=== PATIENT | male | born 1955 | race Caucasian/White ===

== ENCOUNTER 2017-01-05 19:07 | Emergency (ER) | payer MEDICARE, BC ==
--- NOTE | ~2017-01-05 | CR243 ---
[facility]. [facility] A Service of [facility] & [facility] RADIOLOGY TEXT RESULTS PATIENT: LYNNE SEPULVEDA LOCATION: SED : 53 UNIT #: [id number] AGE: [address]: Jocelin Peguero MD SEX: M ORDER DR: [id number] [place] [id number] E MR#: [id number] Acc #: [id number] NAME: LYNNE SEPULVEDA : 1955 SEX: M STUDY DATE/TIME: 01/05/2017 18:27 UNIT: SED ROOM: STUDY DESCRIPTION: CR Thoracic Spine 3 Views Attending Physician: Jocelin Peguero M.D. Ordering Physician: Jocelin Peguero M.D. Primary Care Physician: Maximilian Swift M.D. MEDICAL IMAGING REPORT This report is preliminary unless electronic signature is present. EXAM Thoracic spine 3 views INDICATIONS 58-year-old male with fall and back pain today. No comparisons. FINDINGS Vertebral body heights are maintained. Multilevel degenerative changes with flowing anterior osteophytes suggesting DISH. IMPRESSION No acute thoracic spine abnormality. Multilevel degenerative changes Dictated by... John Fuentes M.D. THIS IS AN ELECTRONICALLY VERIFIED REPORT John Fuentes M.D. at 01/08/2017 8:01 AM LOBO/marissa TD: 01/06/2017 02:15 JOB #: [id number] MEDICAL IMAGING REPORT Page 1 of 1
--- NOTE | ~2017-01-05 | CR72 ---
[facility]. [facility] A Service of [facility] & [facility] RADIOLOGY TEXT RESULTS PATIENT: LYNNE SEPULVEDA LOCATION: SED : 53 UNIT #: [id number] AGE: [address]: Jocelin Peguero MD SEX: M ORDER DR: [id number] [place] [id number] E MR#: [id number] Acc #: [id number] NAME: LYNNE SEPULVEDA : 1955 SEX: M STUDY DATE/TIME: 01/05/2017 18:27 UNIT: SED ROOM: STUDY DESCRIPTION: CR Chest Single View Portable Attending Physician: Jocelin Peguero M.D. Ordering Physician: Jocelin Peguero M.D. Primary Care Physician: Maximilian Swift M.D. MEDICAL IMAGING REPORT This report is preliminary unless electronic signature is present. EXAM Portable chest HISTORY Chest pain after fall today. FINDINGS Mild cardiac enlargement accentuated by low lung volumes. Pulmonary vascularity is normal. No airspace infiltrates or effusions are identified. The lateral costophrenic sulci are partly excluded. Moderate hypertrophic spurring mid thoracic spine. IMPRESSION Cardiac enlargement. No evidence of active disease in the lungs. Dictated by... Juan Jose Schmitz M.D. THIS IS AN ELECTRONICALLY VERIFIED REPORT Juan Jose Schmitz M.D. at 01/06/2017 11:18 PM DFL/marissa TD: 01/06/2017 02:19 JOB #: [id number] MEDICAL IMAGING REPORT Page 1 of 1
--- NOTE | ~2017-01-05 | CT52 ---
[facility] A Service of [facility] & [facility] RADIOLOGY TEXT RESULTS PATIENT: LYNNE SEPULVEDA LOCATION: SED : 53 UNIT #: [id number] AGE: [address]: Jocelin Peguero MD SEX: M ORDER DR: [id number] [place] [id number] E MR#: [id number] Acc #: [id number] NAME: LYNNE SEPULVEDA. : 1955 SEX: M STUDY DATE/TIME: 01/05/2017 18:23 UNIT: SED ROOM: STUDY DESCRIPTION: CT Cervical Spine Wo Cont Attending Physician: Jocelin Peguero M.D. Ordering Physician: Jocelin Peguero M.D. Primary Care Physician: Maximilian Swift M.D. MEDICAL IMAGING REPORT This report is preliminary unless electronic signature is present. EXAM CT of the cervical spine without contrast INDICATIONS 61-year-old male with fall today and neck pain. TECHNIQUE CT of the cervical spine was performed without contrast. Coronal and sagittal reformatted images were obtained. This CT exam was performed with one or more of the following radiation dose reduction techniques: automatic control, adjustment of mA and/or kV according to patient size, and iterative reconstruction. No comparisons are available. FINDINGS There is mild reversal of the usual cervical lordosis apex at C3-C4. This may be positional. There is moderate to severe disc space narrowing at C3-4 and moderate narrowing at C4-5 with mild narrowing elsewhere. There is no significant central canal narrowing. There is facet and uncovertebral hypertrophy. There is degenerative change and narrowing at the atlantoaxial joint. No evidence of acute fracture, traumatic subluxation or prevertebral soft tissue swelling. IMPRESSION 1. No acute fracture, traumatic subluxation or prevertebral soft tissue swelling. 2. Multilevel degenerative changes as described. 3. Not mentioned above noted within the epiglottic region is some lobular soft tissue attenuation material bilaterally. It is indeterminate but it is concerning for a possible mass although could conceivably also represent some lingular tonsillar hypertrophy. I would recommend consultation and evaluation by ENT given this finding. Suggest also correlation with any symptoms referable to this region. Findings discussed with Dr. Freedman at the time of STS. [facility] A Service of [facility] RADIOLOGY TEXT RESULTS PATIENT: LYNNE SEPULVEDA LOCATION: SED : 53 UNIT #: [id number] AGE: [address]: Jocelin Peguero MD SEX: M ORDER DR: dictation Dictated by... John Fuentes M.D. THIS IS AN ELECTRONICALLY VERIFIED REPORT John Fuentes M.D. at 01/15/2017 7:45 AM LOOB/marissa TD: 01/06/2017 02:11 JOB #: [id number] MEDICAL IMAGING REPORT Page 1 of 1
--- NOTE | ~2017-01-05 | CR141 ---
[facility]. [facility] A Service of [facility] & [facility] RADIOLOGY TEXT RESULTS PATIENT: LYNNE SEPULVEDA LOCATION: SED : 53 UNIT #: [id number] AGE: [address]: Jocelin Peguero MD SEX: M ORDER DR: [id number] [place] [id number] E MR#: [id number] Acc #: [id number] NAME: LYNNE SEPULVEDA : 1955 SEX: M STUDY DATE/TIME: 01/05/2017 18:27 UNIT: SED ROOM: STUDY DESCRIPTION: CR Hand Min 3 Views Lt Attending Physician: Jocelin Peguero M.D. Ordering Physician: Jocelin Peguero M.D. Primary Care Physician: Maximilian Swift M.D. MEDICAL IMAGING REPORT This report is preliminary unless electronic signature is present. EXAM Left hand 3 views INDICATIONS Left hand pain today after falling. No comparisons are available. FINDINGS There are mild IP joint degenerative changes. No fracture or dislocation. Soft tissue structures are unremarkable. IMPRESSION Mild IP joint degenerative changes otherwise unremarkable Dictated by... John Fuentes M.D. THIS IS AN ELECTRONICALLY VERIFIED REPORT John Fuentes M.D. at 01/08/2017 8:01 AM LOBO/marissa TD: 01/06/2017 02:00 JOB #: [id number] MEDICAL IMAGING REPORT Page 1 of 1
--- NOTE | ~2017-01-05 | CR173 ---
[facility]. [facility] A Service of [facility] & [facility] RADIOLOGY TEXT RESULTS PATIENT: LYNNE SEPULVEDA LOCATION: SED : 53 UNIT #: [id number] AGE: [address]: Jocelin Peguero MD SEX: M ORDER DR: [id number] [place] [id number] E MR#: [id number] Acc #: [id number] NAME: LYNNE SEPULVEDA : 1955 SEX: M STUDY DATE/TIME: 01/05/2017 18:27 UNIT: SED ROOM: STUDY DESCRIPTION: CR Knee 3 Views Rt Attending Physician: Jocelin Peguero M.D. Ordering Physician: Jocelin Peguero M.D. Primary Care Physician: Maximilian Swift M.D. MEDICAL IMAGING REPORT This report is preliminary unless electronic signature is present. EXAM Right knee 3 views INDICATIONS Fall today and knee pain. No comparisons. FINDINGS There is tricompartmental degenerative change with mild medial compartment narrowing. No joint effusion or fracture. There is also patellofemoral compartment narrowing. IMPRESSION Degenerative change as described. No acute findings Dictated by... John Fuentes M.D. THIS IS AN ELECTRONICALLY VERIFIED REPORT John Fuentes M.D. at 01/08/2017 8:01 AM LOBO/marissa TD: 01/06/2017 01:51 JOB #: [id number] MEDICAL IMAGING REPORT Page 1 of 1
--- NOTE | ~2017-01-05 | CT71 ---
[facility] A Service of [facility] & [facility] RADIOLOGY TEXT RESULTS PATIENT: LYNNE SEPULVEDA LOCATION: SED : 53 UNIT #: [id number] AGE: [address]: Jocelin Peguero MD SEX: M ORDER DR: [id number] [address] [address] [id number] E MR#: [id number] Acc #: [id number] NAME: LYNNE SEPULVEDA. : 1955 SEX: M STUDY DATE/TIME: 01/05/2017 18:19 UNIT: SED ROOM: STUDY DESCRIPTION: CT Head Wo Contrast Attending Physician: Jocelin Peguero M.D. Ordering Physician: Jocelin Peguero M.D. Primary Care Physician: Maximilian Swift M.D. MEDICAL IMAGING REPORT This report is preliminary unless electronic signature is present. EXAM CT of the head without contrast dated 01/05/2017. COMPARISON CT head without contrast dated 10/26/2009. HISTORY Fell today, tripped over the curve in the parking lot and hit forehead on the pavement. Frontal headaches and neck stiffness since then. TECHNIQUE This CT exam was performed with one or more of the following radiation dose reduction techniques: automatic control, adjustment of mA and/or kV according to patient size, and iterative reconstruction. FINDINGS CT of the head was obtained without contrast in the axial plane as per the protocol. Corpus callosal agenesis is seen, stable. 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 No acute intracranial hemorrhage, hydrocephalus, midline shift or fracture is seen. Small nodular mucosal thickening is seen in the inferior right frontal sinus and inferomedial right maxillary antrum with some mucosal thickening in the other paranasal sinuses. There is no air fluid levels noted. Correlate with prior history of sinonasal surgery. Mastoid air cells and middle ear cavities do not demonstrate any significant abnormality. Orbits and the ocular structures are grossly unremarkable. IMPRESSION 1. No acute abnormality like hemorrhage, fracture. 2. 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 3. Mild paranasal sinus mucosal thickening. STS. [facility] A Service of [facility] & [facility] RADIOLOGY TEXT RESULTS PATIENT: LYNNE SEPULVEDA LOCATION: [facility] : 53 UNIT #: [id number] AGE: [address]: Jocelin Peguero MD SEX: M ORDER DR: Dictated by... Rosario Kennedy M.D. THIS IS AN ELECTRONICALLY VERIFIED REPORT Rosario Kennedy M.D. at 01/08/2017 1:44 PM CPR/rnr TD: 01/06/2017 01:53 JOB #: [id number] MEDICAL IMAGING REPORT Page 1 of 1
--- NOTE | ~2017-01-05 | CR93 ---
[facility]. [facility] A Service of [facility] & [facility] RADIOLOGY TEXT RESULTS PATIENT: LYNNE SEPULVEDA LOCATION: SED : 53 UNIT #: [id number] AGE: [address]: Jocelin Peguero MD SEX: M ORDER DR: [id number] [place] [id number] E MR#: [id number] Acc #: [id number] NAME: LYNNE SEPULVEDA : 1955 SEX: M STUDY DATE/TIME: 01/05/2017 18:27 UNIT: SED ROOM: STUDY DESCRIPTION: CR Elbow Min 3 Views Lt Attending Physician: Jocelin Peguero M.D. Ordering Physician: Jocelin Peguero M.D. Primary Care Physician: Maximilian Swift M.D. MEDICAL IMAGING REPORT This report is preliminary unless electronic signature is present. EXAM Left elbow 3 views HISTORY Elbow pain after fall today. FINDINGS 3 views of the left elbow demonstrate normal bone alignment. No fracture, joint space narrowing or effusion. Small posterior olecranon spur. IMPRESSION No acute findings Dictated by... Juan Jose Schmitz M.D. THIS IS AN ELECTRONICALLY VERIFIED REPORT Juan Jose Scmhitz M.D. at 01/06/2017 11:18 PM DFL/marissa TD: 01/06/2017 02:24 JOB #: [id number] MEDICAL IMAGING REPORT Page 1 of 1
--- NOTE | ~2017-01-05 | CR230 ---
[facility]. [facility] A Service of [facility] & [facility] RADIOLOGY TEXT RESULTS PATIENT: LYNNE SEPULVEDA LOCATION: SED : 53 UNIT #: [id number] AGE: [address]: Jocelin Peguero MD SEX: M ORDER DR: [id number] [place] [address] [id number] E MR#: [id number] Acc #: [id number] NAME: LYNNE SEPULVEDA : 1955 SEX: M STUDY DATE/TIME: 01/05/2017 18:27 UNIT: SED ROOM: STUDY DESCRIPTION: CR Shoulder Min 2 View Rt Attending Physician: Jocelin Peguero M.D. Ordering Physician: Jocelin Peguero M.D. Primary Care Physician: Maximilian Swift M.D. MEDICAL IMAGING REPORT This report is preliminary unless electronic signature is present. EXAM Right shoulder 3 views INDICATIONS Right shoulder pain today after falling. No comparisons. FINDINGS Mild AC joint degenerative change. No fracture or dislocation. IMPRESSION Mild AC joint degenerative change otherwise unremarkable Dictated by... John Fuentes M.D. THIS IS AN ELECTRONICALLY VERIFIED REPORT John Fuentes M.D. at 01/08/2017 8:01 AM LOBO/marissa TD: 01/06/2017 01:52 JOB #: [id number] MEDICAL IMAGING REPORT Page 1 of 1
[~2017-01-05 19:07] MED LIST: ACULAR10 ML OP; AMBIEN PO; AMBIEN10 MG PO; AMITRIPTYLINE H25 MG PO; ARTHRITIS PAIN650 M3 PO; ASPIRIN PO; ASPIRIN81 M1 PO; ASPIRIN81 M2 PO; ASPIRIN81 MG; ASPIRIN81 MG PO; AVADART; AVODART0.5 MG PO; BYSTOLIC2.5 MG; CELEXA20 MG PO; COMBO; COZAAR100 MG PO; DUTASTERIDE 0.5 MG; FISH OIL500 M1 PO; FLEXERIL PO; FLOMAX0.4 M1; FLOMAX0.4 M1 DOB; FLOMAX0.4 M1 PO; FLOMAX0.4 MG PO; GI COCKTAIL PO; HCTZ; HCTZ PO; HYDROCODON-ACE1 EA12 PO; HYTRIN; IBUPROFEN PO; JANUVIA25 MG PO; K-DUR20 ME1 PO; LEVAQUIN PO; LOPRESSOR PO; LOTREL; LOTREL 10-40 M1 EACH PO; LOTREL 10/20 MG1 CAP PO; LOTREL 5/20 MG1 CAP PO; LYRICA75 MG PO; METOPROLOL SUC100 MG PO; MONTELUKAST SOD10 MG PO; MUCINEX100 MG/5 M PO; NEXIUM PO; NORCO 7.5-3251 EACH PO; NORCO 7.5/325 T1 TAB; NORVASC PO; OMEPRAZOLE40 M1 PO; PREVPAC PA1 COMB.PKG PO; REGLAN10 MG PO; TRIAMTERENE-HCT1 TA6 PO; VIBRAMYCIN100 M1 PO; VIGAMOX3 ML OP; VITAMIN B; VITAMIN B OTC; VITAMIN C OTC; VITAMIN C PO; VITAMIN D; VITAMIN D OTC; VITAMIN E; VITAMIN E OTC
== END 2017-01-05 20:01 | disposition home or self-care (01) ==
LOC: SED 19:07
DX: S09.90XA Unspecified injury of head, initial encounter (principal); K14.9 Disease of tongue, unspecified; I10 Essential (primary) hypertension; G40.909 Epilepsy, unspecified, not intractable, without status epilepticus; E11.9 Type 2 diabetes mellitus without complications; F41.9 Anxiety disorder, unspecified; Z98.890 Other specified postprocedural states; W01.0XXA Fall on same level from slipping, tripping and stumbling without subsequent striking against object, initial encounter; Y92.830 Public park as the place of occurrence of the external cause; Z23 Encounter for immunization
CPT/HCPCS: 70450; 71010; 72072; 72125; 73030; 73080; 73130; 73562; 90471; 90715; 99284

== ENCOUNTER → 2017-02-15 | Outpatient (CLI) | payer MEDICARE, BC ==
--- NOTE | ~2017-02-15 | EKG ---
PATIENT: LYNNE SEPULVEDA UNIT #: [id number] Ventricular Rate: 63 BPM Atrial Rate: 63 BPM P-R Interval: 188 ms QRS Duration: 106 ms Q-T Interval: 438 ms QTC Calculation(Bezet): 448 ms P [place]: 47 degrees Calculated R [place]: 6 degrees Calculated T [place]: 44 degrees Diagnosis Line: Normal sinus rhythm T wave abnormality, consider Diagnosis Line: anterior ischemia Diagnosis Line: Normal ECG Diagnosis Line: When compared with ECG of 04-MAY-2016 11:28, Diagnosis Line: T wave inversion no longer evident in Lateral Diagnosis Line: leads Diagnosis Line: Confirmed by GILDARDO SILVA MD ([id number]) on 02/15/2017 Diagnosis Line: 5:26:05 PM INTERPRETING MD: RICARDO ARMAS
== END | disposition home or self-care (01) ==
LOC: SEKG 13:47
DX: K14.8 Other diseases of tongue (principal)
CPT/HCPCS: 93005